=== PATIENT | female | born 1955 | race Caucasian/White ===

== ENCOUNTER 2020-10-02 03:43 | Outpatient (CLI) | payer OTHER, SELFPAY ==
[2020-10-03 21:19] LABS: Patient Race White; SARS-CoV-2 RNA Undetected (Undetected); SARS-CoV-2 Specimen Source Nasal
== END 2020-10-02 04:03 ==
PROVIDERS: PCP Legal Medicine; Visit Provider Legal Medicine
DX: Z11.59 Encounter for screening for other viral diseases (principal)
CPT/HCPCS: U0003